=== PATIENT | male | born 1965 | race African-American/Black ===

== ENCOUNTER 2018-12-23 00:23 | Inpatient (IN) ==
[2018-12-23 01:01] LABS: Basophils # (auto) 0.03 K/uL (0-0.2); Basophils % (auto) 0.4 %; Eosinophils # (auto) 0.16 K/uL (0-0.5); Eosinophils % (auto) 2.2 %; Hematocrit (blood only) 36.2 % (42-52); Hemoglobin 12.9 g/dL (14.0-18.0); Immature Granulocytes # (auto) 0.01 K/uL (0.00-0.02); Immature Granulocytes % (auto) 0.1 %; Lymphocytes # (auto) 1.58 K/uL (1.2-3.4); Lymphocytes % (auto) 22.1 %; Mean Corpuscular Hgb Conc 35.6 g/dL (32-36); Mean Corpuscular Volume 87.4 fL (80-100); Mean Platelet Volume 8.5 fL (7.4-10.4); Monocytes # (auto) 0.75 K/uL (0.11-0.59); Monocytes % (auto) 10.5 %; Neutrophils # (auto) 4.62 K/uL (1.4-6.5); Neutrophils % (auto) 64.7 %; Platelet Count 291 K/uL (130-400); RDW Coefficient of Variation 12.7 % (11.5-14.5); RDW Standard Deviation 41.2 fL (36.4-46.3); Red Blood Count 4.14 M/uL (4.7-6.1); White Blood Count 7.15 K/uL (4.8-10.8)
[2018-12-23 01:09] LABS: Alanine Aminotransferase 35 U/L (12-78); Albumin Level 3.6 gm/dl (3.4-5.0); Aspartate Aminotransferase 32 U/L (15-37); Blood Urea Nitrogen 9 mg/dl (7-18); Calcium 8.4 mg/dl (8.5-10.1); Carbon Dioxide 23 mmol/L (21-32); Chloride 96 mmol/L (98-107); Est GFR (African American) 111.9; Est GFR (Non-African American) 96.6; Glucose 118 mg/dl (70-99); Magnesium 1.6 mg/dl (1.8-2.4); Potassium 3.3 mmol/L (3.5-5.1); Sodium 128 mmol/L (136-145)
[2018-12-23 01:20] LABS: Albumin Globulin Ratio 0.9 (0.9-2); Alkaline Phosphatase 64 U/L (45-117); Bilirubin,Total 0.3 mg/dl (0.2-1); Globulin 3.9 gm/dl (2.5-4.0); Total Protein 7.5 gm/dl (6.4-8.2); Troponin I < 0.015 ng/ml (0-0.045)
[2018-12-23] MEDS ORDERED: SODIUM CHLORIDE 0.9% 1000ML 1,000 ML IV ONE (01:57)
[2018-12-23] MEDS ORDERED: POTASSIUM CHLORIDE 20 MEQ TABCR PO STA ×2 (02:22→10:36)
[2018-12-23 02:29] LABS: Appearance Urine Clear (Clear); Bilirubin Urine Negative (Negative); Blood Urine Negative (Negative); Color Urine Yellow; Glucose Urine UA Negative (Negative); Ketones Urine Negative (Negative); Leukocyte Esterase Urine Negative (Negative); Nitrite Urine Negative (Negative); Protein Urine Negative (Negative); Urobilinogen Urine Negative (Negative)
[2018-12-23] MEDS: MAGNESIUM SULFATE / D5W 1 GM/100 ML BAG IV SCH ×2 (02:52→04:49)
--- NOTE | 2018-12-23 02:59 | History & Physical Report ---
Date of Service December 23, 2018 Assessment & Plan (1) Nonsustained ventricular tachycardia: Patient had several 4 beat runs of nonsustained V. tach while in the emergency department. We will give magnesium sulfate 2 g IV, and Klor-Con 40 mEq p.o. Present on Admission?: Yes (2) Hypokalemia: Potassium 3.3 upon admission. We will give Klor-Con 40 mEq p.o. Recheck laboratories at 10:00 this a.m. Present on Admission?: Yes (3) Hypomagnesemia: Magnesium 1.6 upon admission. Give magnesium sulfate 2 g IV. Repeat laboratories at 10:00 AM Present on Admission?: Yes (4) Hematuria: Hematuria/increased urinary frequency- Patient reports he has had blood in his urine, has not seen his doctor in follow-up yet. Order urinalysis, urine culture and sensitivity and PSA. Present on Admission?: Yes (5) Increased urinary frequency: As above. Present on Admission?: Yes (6) Chest discomfort: Chest discomfort left lateral quadrant of chest- The patient will be admitted to telemetry for serial cardiac enzymes, serial EKG's, cardiac rhythm monitoring and a 2-D echocardiogram with Dopplers. Add a d-dimer. Present on Admission?: Yes (7) Hyponatremia: Hyponatremia/polydipsia- Admission laboratories: Sodium 128, magnesium 1.6, potassium 3.3, serum osmolality 274, urine osmolality 85. Laboratories are consistent with polydipsia. Patient reports he has been urinating up to every 15 minutes. Unclear cause of polydipsia at this time. Fluid restriction 1500 mils. Add a urine drug screen. As noted above will be repeating laboratories later in the day Present on Admission?: Yes (8) Polydipsia: As above. Present on Admission?: Yes History of Present Illness Chief Complaint: The patient presents to the emergency department with complaint of intermittent chest discomfort, bilateral tingling in upper extremities. He is also had muscle cramps in both lower extremities over the past month. Primary Care Provider: NO PCP The patient is a 53-year-old male with no significant past medical history, who is traveling from [facility] to [facility], and stopped [facility] due to concerns regarding symptoms of chest discomfort, bilateral upper extremity paresthesias and dysesthesias, and lower extremity cramping. He also reports he has had hematuria for which she has yet to follow-up with his physician. He reports urinating up to every 15 minutes for weeks to months, but denies dysuria or grossly visible blood. Allergies Allergy/AdvReac Type Severity Reaction Status Date / Time No Known Allergies Allergy Unverified 12/23/18 02:06 Home Medications Home Medications Medication Instructions Recorded Confirmed Type No Known Home Medications 12/23/18 12/23/18 History Past Med/Surg History Medical History No significant past medical history Family History Other Diabetes Hypertension Social History Preferred Language: South African Communication Ability: Effective Spiritual Advisor Required: No Beliefs That Will Affect Care: None Current Living Situation: Parent Other Information That Helps Us Care for You: No Feels Safe at Home: Yes Safety Concerns: Feels Safe At This Time Smoking Status: Current every day smoker Tobacco Type: cigarettes Second Hand Exposure: No Tobacco Cessation Education Requested by Patient: No Hx Alcohol Use: Yes Alcohol type: beer Hx Substance Use: No Review of Systems Review of Systems: The patient denies palpitations, shortness of breath, dyspnea on exertion, cough, lower extremity swelling, sore throat, fevers, chills, sweats, weight change, fatigue, nausea, vomiting, diarrhea , constipation, abdominal pain, pelvic pain, blood in stool, dysuria, urinary frequency or urgency, lightheadedness, dizziness, headache, memory loss, loss of consciousness, rash, abnormal bruising or bleeding, imbalance, back or neck pain, or night sweats. The review of systems is otherwise negative other than for that already noted above, and at least 10 systems have been reviewed. Physical Exam Physical Exam: The patient is awake, alert and oriented 3, well developed and well nourished, normocephalic and atraumatic, lying in bed and in no acute distress. HEENT--PERRL, EOMI, mucous membranes and oropharynx normal. Neck--supple. No JVD. No bruits. Thyroid normal, trachea midline, no adenopathy. Heart--normal S1 and S2. No murmurs, rubs or gallops. Lungs--clear bilaterally, no respiratory distress, no accessory muscle use. Abdomen--normal bowel sounds and soft. Nontender. Nondistended, no hernias or masses, no organomegaly. Extremities--no cyanosis or clubbing. No edema. There are good distal pulses b/l. Dermatologic--normal skin turgor, normal color, no abnormal lymph nodes, no rash. Neurologic--cranial nerves II through XII grossly intact. Rheumatologic--normal range of motion. Psychiatric--normal affect. Results & Data Vital Signs (Past 12 Hours) Vital Signs Temp Pulse Pulse Resp BP BP Pulse Ox 12/23/18 02:06 58 L 17 137/64 98 12/23/18 00:27 98.1 F 68 18 152/72 H 99 Laboratory Results Laboratory Results WBC 7.15 K/uL (4.8-10.8) 12/23/18 00:42 RBC 4.14 M/uL (4.7-6.1) L 12/23/18 00:42 Hgb 12.9 g/dL (14.0-18.0) L 12/23/18 00:42 Hct 36.2 % (42-52) L 12/23/18 00:42 MCV 87.4 fL (80-100) 12/23/18 00:42 MCH 31.2 pg (25-34) 12/23/18 00:42 MCHC 35.6 g/dL (32-36) 12/23/18 00:42 RDW Std Deviation 41.2 fL (36.4-46.3) 12/23/18 00:42 RDW Coeff of Raul 12.7 % (11.5-14.5) 12/23/18 00:42 Plt Count 291 K/uL (130-400) 12/23/18 00:42 MPV 8.5 fL (7.4-10.4) 12/23/18 00:42 Immature Gran % (Auto) 0.1 % 12/23/18 00:42 Neut % (Auto) 64.7 % 12/23/18 00:42 Lymph % (Auto) 22.1 % 12/23/18 00:42 [place] % (Auto) 10.5 % 12/23/18 00:42 Eos % (Auto) 2.2 % 12/23/18 00:42 Baso % (Auto) 0.4 % 12/23/18 00:42 Immature Gran # (Auto) 0.01 K/uL (0.00-0.02) 12/23/18 00:42 Neut # (Auto) 4.62 K/uL (1.4-6.5) 12/23/18 00:42 Lymph # (Auto) 1.58 K/uL (1.2-3.4) 12/23/18 00:42 [place] # (Auto) 0.75 K/uL (0.11-0.59) H 12/23/18 00:42 Eos # (Auto) 0.16 K/uL (0-0.5) 12/23/18 00:42 Baso # (Auto) 0.03 K/uL (0-0.2) 12/23/18 00:42 Sodium 128 mmol/L (136-145) L 12/23/18 00:42 Potassium 3.3 mmol/L (3.5-5.1) L 12/23/18 00:42 Chloride 96 mmol/L (98-107) L 12/23/18 00:42 Carbon Dioxide 23 mmol/L (21-32) 12/23/18 00:42 Anion Gap 9.0 (3-11) 12/23/18 00:42 BUN 9 mg/dl (7-18) 12/23/18 00:42 Creatinine 0.91 mg/dl (0.6-1.4) 12/23/18 00:42 Est Cr Clr Drug Dosing 95.0 ml/min 12/23/18 00:42 Est GFR ( Amer) 111.9 12/23/18 00:42 Est GFR (Non-Af Amer) 96.6 12/23/18 00:42 BUN/Creatinine Ratio 10.0 (10-20) 12/23/18 00:42 Glucose 118 mg/dl (70-99) H 12/23/18 00:42 Osmolality 274 mOsm/kg (280-300) L 12/23/18 00:42 Calcium 8.4 mg/dl (8.5-10.1) L 12/23/18 00:42 Magnesium 1.6 mg/dl (1.8-2.4) L 12/23/18 00:42 Total Bilirubin 0.3 mg/dl (0.2-1) 12/23/18 00:42 AST 32 U/L (15-37) 12/23/18 00:42 ALT 35 U/L (12-78) 12/23/18 00:42 Alkaline Phosphatase 64 U/L (45-117) 12/23/18 00:42 Troponin I < 0.015 ng/ml (0-0.045) 12/23/18 00:42 Total Protein 7.5 gm/dl (6.4-8.2) 12/23/18 00:42 Albumin 3.6 gm/dl (3.4-5.0) 12/23/18 00:42 Globulin 3.9 gm/dl (2.5-4.0) 12/23/18 00:42 Albumin/Globulin Ratio 0.9 (0.9-2) 12/23/18 00:42 Prostate Specific Ag 1.380 ng/ml (0-4) 12/23/18 00:42 TSH 0.588 uIu/ml (0.300-4.500) 12/23/18 00:42 Urine Color Yellow 12/23/18 01:28 Urine Appearance Clear (Clear) 12/23/18 01:28 Urine pH 6.0 (4.5-7.5) 12/23/18 01:28 Ur Specific [place] 1.010 (1.000-1.030) 12/23/18 01:28 Urine Protein Negative (Negative) 12/23/18 01:28 Urine Glucose (UA) Negative (Negative) 12/23/18 01:28 Urine Ketones Negative (Negative) 12/23/18 01:28 Urine Blood Negative (Negative) 12/23/18 01:28 Urine Nitrite Negative (Negative) 12/23/18 01:28 Urine Bilirubin Negative (Negative) 12/23/18 01:28 Urine Urobilinogen Negative (Negative) 12/23/18 01:28 Ur Leukocyte Esterase Negative (Negative) 12/23/18 01:28 Urine Osmolality 85 mOsm/kg (500-800) L 12/23/18 01:28 Ethyl Alcohol mg/dL 17.0 mg/dl (0-3) H 12/23/18 00:55 Code Status & VTE Plan Code Status Full code VTE Prophylaxis Plan VTE Prophylaxis will be ordered: Yes PG Care Time/CCT Total # of Minutes Spent Total Time Spent with Patient: Total time spent is greater than 50% in coordination of care (as documented) at patient's floor/unit and/or counseling patient:
[2018-12-23] MEDS ORDERED: ALUMINUM/MAGNESIUM SUSP 30 ML UDC PO PRN (03:39)
[2018-12-23] MEDS ORDERED: MAGNESIUM HYDROXIDE SUSP 30 ML UDC PO PRN (03:39)
[2018-12-23] MEDS ORDERED: ACETAMINOPHEN 325 MG TAB PO PRN (03:39)
--- NOTE | 2018-12-23 04:25 | Emergency Department Note ---
Entered by Zulay Richards acting as a scribe for History of Present Illness General Chief complaint: Cardiac Assessment Stated complaint: ARM PAIN,CHEST DIFFCOMFORT Time Seen by Provider: 12/23/18 00:31 Source: patient History of Present Illness Onset (ago): hour(s) (just prior to arrival) Location: left and right Pain Consistency: + other (episode ) Quality: + other (feeling "iffy") Associated symptoms: + other (positive tingling in hands and fingers; positive feels like going to "cramp up") Treatments prior to arrival: none The patient is a 53 year old male who presents to the Emergency Room with complaints of an episode of feeling "iffy" that began just prior to arrival. The patient states that he had tingling in his hands and fingers at this time. He states that he feels like he is "going to cramp up". The patient states that he is currently driving from [place] to [facility]. The patient states that he has a tooth infection, but states that he has been taking his prescribed Amoxicillin for this. The patient states that he drank beer today. He states that he has a family history of Diabetes and Hypertension. Home Medications Home Medications Medication Instructions Recorded Confirmed Type No Known Home Medications 12/23/18 12/23/18 History Allergies Allergy/AdvReac Type Severity Reaction Status Date / Time No Known Allergies Allergy Unverified 12/23/18 02:06 Past Med/Surg History Medical History No significant past medical history Family History Other Diabetes Hypertension Social History Preferred Language: Serbian Communication Ability: Effective Sort Line Worker Required: No Beliefs That Will Affect Care: None Current Living Situation: Parent Other Information That Helps Us Care for You: No Feels Safe at Home: Yes Safety Concerns: Feels Safe At This Time Smoking Status: Current every day smoker Tobacco Type: cigarettes Second Hand Exposure: No Tobacco Cessation Education Requested by Patient: No Hx Alcohol Use: Yes Alcohol type: beer Hx Substance Use: No Review of Systems See HPI for pertinent positives & negatives. and A total of 10 systems reviewed and were otherwise negative Physical Exam Vital Signs Vital Signs - 24 hr 12/23/18 00:27 12/23/18 00:50 12/23/18 02:06 Temperature 36.7 C Temperature Source Oral Sepsis Recent Fever Within 48 Hours No Sepsis New/Unexplained Change in Mental Status No Sepsis Action Taken by Nursing No Action Required Pulse Rate 68 Pulse Rate [Right Finger] 58 L Respiratory Rate 18 17 Blood Pressure 152/72 H Blood Pressure [Right Arm] 137/64 Blood Pressure Mean 98 Blood Pressure Mean [Right Arm] 88 Pulse Oximetry 99 98 Oxygen Delivery Method Room Air Room Air Room Air HEENT: Head - normocephalic and atraumatic Pupils are equal, round, and reactive to light. Extraocular eye muscles are intact, and sclera are anicteric. Nose - moist nasal mucosa without discharge. Mouth - moist buccal mucosa. Oropharynx is nonerythematous and there is no tonsillar exudate or edema noted. Neck: Supple; no JVD, nuchal rigidity, cervical lymphadenopathy. Heart: Regular rate and rhythm. There is a normal S1 and S2 with no murmurs, clicks, or gallops appreciated. Lungs: Clear to auscultation bilaterally with no wheezes, rales, or rhonchi. Abdomen: Soft, completely nontender, nondistended, with good bowel sounds. There are no palpable pulsatile masses or hepatosplenomegaly. There is no guarding, rigidity, or rebound noted. Extremities: No evidence of cyanosis, clubbing, or edema. There are easily palpable peripheral pulses. Skin: warm and dry with good turgor and no rashes. Course 0039: Past medical records reviewed. The patient was evaluated in room A3. A complete history and physical exam was performed. While in the room the patient had a run of wide complex rhythm and was asymptomatic with this. A twelve-lead EKG was performed. An IV lock was initiated and labs were drawn as above. 0154: Upon reevaluation, the patient states that he was drinking Red Bull and taking caffeine and ginseng tablets today. The patient's episodes of a wide complex rhythm have slowed down. I discussed the [facility] who [facility] the patient for further evaluation. The patient was started on a normal saline drip. Consultations Consultation #1: I discussed the case [facility] who accepts the patient for further evaluation. Time: 01:54 Administered Medications Magnesium Sulfate/Dextrose (Magnesium Sulfate / D5w) 1 gm in 100 mls @ 100 mls/hr IV Q1H JOSE MARTIN Stop: 12/23/18 04:29 Last Admin: 12/23/18 02:52 Dose: 100 mls/hr Documented by: [id number] Discontinued Medications Sodium Chloride (Nss 1000ml) 1,000 mls @ 999 mls/hr IV .Q1H1M ONE Stop: 12/23/18 02:57 Last Infusion: 12/23/18 03:00 Dose: 0 mls/hr Documented by: [id number] Admin: 12/23/18 02:02 Dose: 999 mls/hr Documented by: [id number] Potassium Chloride (Klor-Con M20) 40 meq PO NOW STA Stop: 12/23/18 02:23 Last Admin: 12/23/18 02:52 Dose: 40 meq Documented by: [id number] Medical Decision Making Differential Diagnosis Differential diagnoses include alcohol intoxication, caffeine overdose, drug abuse, cardiac disease, anxiety, and others were considered. Medical Records Attestation: I reviewed the patient's medical records. Home Medications Current Medication List: was personally reviewed by me Laboratory Data Attestation: I reviewed the patient's lab results. Result diagrams: 12/23/18 00:42 12/23/18 00:42 Lab Results 12/23/18 12/23/18 12/23/18 Range/Units 00:42 00:42 00:42 WBC 7.15 (4.8-10.8) K/uL RBC 4.14 L (4.7-6.1) M/uL Hgb 12.9 L (14.0-18.0) g/dL Hct 36.2 L (42-52) % MCV 87.4 (80-100) fL MCH 31.2 (25-34) pg MCHC 35.6 (32-36) g/dL RDW Std Deviation 41.2 (36.4-46.3) fL RDW Coeff of Raul 12.7 (11.5-14.5) % Plt Count 291 (130-400) K/uL MPV 8.5 (7.4-10.4) fL Immature Gran % (Auto) 0.1 % Neut % (Auto) 64.7 % Lymph % (Auto) 22.1 % [place] % (Auto) 10.5 % Eos % (Auto) 2.2 % Baso % (Auto) 0.4 % Immature Gran # (Auto) 0.01 (0.00-0.02) K/uL Neut # (Auto) 4.62 (1.4-6.5) K/uL Lymph # (Auto) 1.58 (1.2-3.4) K/uL [place] # (Auto) 0.75 H (0.11-0.59) K/uL Eos # (Auto) 0.16 (0-0.5) K/uL Baso # (Auto) 0.03 (0-0.2) K/uL Sodium 128 L (136-145) mmol/L Potassium 3.3 L (3.5-5.1) mmol/L Chloride 96 L (98-107) mmol/L Carbon Dioxide 23 (21-32) mmol/L Anion Gap 9.0 (3-11) BUN 9 (7-18) mg/dl Creatinine 0.91 (0.6-1.4) mg/dl Est Cr Clr Drug Dosing 95.0 ml/min Est GFR ( Amer) 111.9 Est GFR (Non-Af Amer) 96.6 BUN/Creatinine Ratio 10.0 (10-20) Glucose 118 H (70-99) mg/dl Osmolality 274 L (280-300) mOsm/kg Calcium 8.4 L (8.5-10.1) mg/dl Magnesium 1.6 L (1.8-2.4) mg/dl Total Bilirubin 0.3 (0.2-1) mg/dl AST 32 (15-37) U/L ALT 35 (12-78) U/L Alkaline Phosphatase 64 (45-117) U/L Troponin I < 0.015 (0-0.045) ng/ml Total Protein 7.5 (6.4-8.2) gm/dl Albumin 3.6 (3.4-5.0) gm/dl Globulin 3.9 (2.5-4.0) gm/dl Albumin/Globulin Ratio 0.9 (0.9-2) Prostate Specific Ag 1.380 (0-4) ng/ml TSH 0.588 (0.300-4.500) uIu/ml Urine Color Urine Appearance (Clear) Urine pH (4.5-7.5) Ur Specific [place] (1.000-1.030) Urine Protein (Negative) Urine Glucose (UA) (Negative) Urine Ketones (Negative) Urine Blood (Negative) Urine Nitrite (Negative) Urine Bilirubin (Negative) Urine Urobilinogen (Negative) Ur Leukocyte Esterase (Negative) Urine Osmolality (500-800) mOsm/kg Ethyl Alcohol mg/dL (0-3) mg/dl 12/23/18 12/23/18 12/23/18 Range/Units 00:55 01:28 01:28 WBC (4.8-10.8) K/uL RBC (4.7-6.1) M/uL Hgb (14.0-18.0) g/dL Hct (42-52) % MCV (80-100) fL MCH (25-34) pg MCHC (32-36) g/dL RDW Std Deviation (36.4-46.3) fL RDW Coeff of Raul (11.5-14.5) % Plt Count (130-400) K/uL MPV (7.4-10.4) fL Immature Gran % (Auto) % Neut % (Auto) % Lymph % (Auto) % [place] % (Auto) % Eos % (Auto) % Baso % (Auto) % Immature Gran # (Auto) (0.00-0.02) K/uL Neut # (Auto) (1.4-6.5) K/uL Lymph # (Auto) (1.2-3.4) K/uL [place] # (Auto) (0.11-0.59) K/uL Eos # (Auto) (0-0.5) K/uL Baso # (Auto) (0-0.2) K/uL Sodium (136-145) mmol/L Potassium (3.5-5.1) mmol/L Chloride (98-107) mmol/L Carbon Dioxide (21-32) mmol/L Anion Gap (3-11) BUN (7-18) mg/dl Creatinine (0.6-1.4) mg/dl Est Cr Clr Drug Dosing ml/min Est GFR ( Amer) Est GFR (Non-Af Amer) BUN/Creatinine Ratio (10-20) Glucose (70-99) mg/dl Osmolality (280-300) mOsm/kg Calcium (8.5-10.1) mg/dl Magnesium (1.8-2.4) mg/dl Total Bilirubin (0.2-1) mg/dl AST (15-37) U/L ALT (12-78) U/L Alkaline Phosphatase (45-117) U/L Troponin I (0-0.045) ng/ml Total Protein (6.4-8.2) gm/dl Albumin (3.4-5.0) gm/dl Globulin (2.5-4.0) gm/dl Albumin/Globulin Ratio (0.9-2) Prostate Specific Ag (0-4) ng/ml TSH (0.300-4.500) uIu/ml Urine Color Yellow Urine Appearance Clear (Clear) Urine pH 6.0 (4.5-7.5) Ur Specific [place] 1.010 (1.000-1.030) Urine Protein Negative (Negative) Urine Glucose (UA) Negative (Negative) Urine Ketones Negative (Negative) Urine Blood Negative (Negative) Urine Nitrite Negative (Negative) Urine Bilirubin Negative (Negative) Urine Urobilinogen Negative (Negative) Ur Leukocyte Esterase Negative (Negative) Urine Osmolality 85 L (500-800) mOsm/kg Ethyl Alcohol mg/dL 17.0 H (0-3) mg/dl ECG Data Attestation: I personally reviewed and interpreted this ECG as follows: Indication: weakness Rate (beats per minute): 56 Rhythm: sinus bradycardia Findings: + other (no ischemia ); no ectopy Blood Pressure Blood Pressure Findings: Elevated blood pressure Blood Pressure Disposition: further management by hospitalist [facility] Ruby The patient is a 53 year old male who presents to the Emergency Room with complaints of an episode of feeling "iffy" that began just prior to arrival. The patient describes just not feeling like himself. While he was driving he describes feeling unsure of himself. Upon presentation to the emergency department, the patient had a normal sinus rhythm and sinus bradycardia with episodes of wide-complex rhythm. There were occasional PVCs that seem to be followed by 3-4 beats of this wide-complex rhythm. The patient describes being athletic but does smoke. He denies any previous cardiac dysrhythmia. However, he had been drinking caffeinated beverages and taking caffeine tablets along with ginseng to keep himself awake for the drive. The patient does admit that he was drinking quite a bit of fluid as a result of trying to keep himself awake. He is now hyponatremic. This could be secondary to polydipsia. The patient will be evaluated by the [facility] for admission. Impression & Plan Hyponatremia, Dysrhythmia Discharge Plan Visit Data *Final* Discharge Date/Time: 12/23/18 03:17 Chief Complaint: Cardiac Assessment Stated Complaint: ARM PAIN,CHEST DIFFCOMFORT ED Provider: Rufina Scott Discharge Problem: Hyponatremia, Dysrhythmia Patient Disposition: Admitted As Inpatient Discharge Instructions Interventions: ED Discharge Assessment Last Done: 12/23/18 03:17 Discharge Problem: Dysrhythmia Qualifiers: Arrhythmia type: unspecified cardiac arrhythmia Qualified Code(s): I49.9 - Cardiac arrhythmia, unspecified The scribe's documentation has been prepared under my direction and personally reviewed by me in its entirety. I confirm that the note above accurately reflects all work, treatment, procedures, and medical decision making performed by me.
--- NOTE | 2018-12-23 06:40 | XRay Report ---
XR chest 1V portable CLINICAL HISTORY: Atypical chest pain COMPARISON STUDY: No previous studies for comparison. FINDINGS: The cardiac and mediastinal contours are normal. There is no evidence of focal pulmonary co nsolidation. There is no evidence of failure. No pleural effusions are visualized.[ IMPRESSION: No active disease in the chest. Electronically signed by: Haja Martines M.D. 12/23/2018 6:39 AM
[2018-12-23] MEDS ORDERED: SODIUM CHLORIDE 0.9% 500 ML IV SCH (10:45)
[2018-12-23 12:57] LABS: BUN Creatinine Ratio 8.2 (10-20); Creatinine Clr Calc Pharmacy 74.5 ml/min; Est GFR (African American) 83.5; Magnesium 2.2 mg/dl (1.8-2.4); Potassium 4.3 mmol/L (3.5-5.1)
--- NOTE | 2018-12-23 14:06 | Discharge Summary ---
Date of Service December 23, 2018 Admission HPI Per Admitting Provider The patient is a 53-year-old male with no significant past medical history, who is traveling from [facility] to [facility], and stopped [facility] due to concerns regarding symptoms of chest discomfort, bilateral upper extremity paresthesias and dysesthesias, and lower extremity cramping. He also reports he has had hematuria for which she has yet to follow-up with his physician. He reports urinating up to every 15 minutes for weeks to months, but denies dysuria or grossly visible blood. Principal Diagnosis hyponatremia hypokalemia' hypomagnesemia Discharge Exam Constitutional well developed and average body habitus Eyes no conjunctival abnormality and no scleral abnormality Neck normal visual inspection and trachea midline Respiratory normal respiratory effort; no respiratory distress Auscultation: lungs clear to auscultation bilaterally Cardiovascular RRR, no murmur, no edema Gastrointestinal (Abdomen) normal bowel sounds, soft, nontender, no hepatosplenomegaly Musculoskeletal no cyanosis or clubbing, extremities motor strength 5/5 Discharge Data Allergies Allergy/AdvReac Type Severity Reaction Status Date / Time No Known Allergies Allergy Unverified 12/23/18 02:06 Consultations 12/23/18 01:57 ED Decision to Admit Stat 12/23/18 03:39 Consult Case Management - Discharge Planning Routine Hospital Course (1) Nonsustained ventricular tachycardia: Patient had several 4 beat runs of nonsustained V. tach while in the emergency department. he has not had further ectopy (2) Hypokalemia: replete (3) Hypomagnesemia: replete (4) Hematuria: Hematuria/increased urinary frequency- Patient reports he has had blood in his urine, has not seen his doctor in follow-up yet. Order urinalysis, urine culture and sensitivity and PSA. (5) Increased urinary frequency: As above. (6) Chest discomfort: Chest discomfort left lateral quadrant of chest- resolved (7) Hyponatremia: Hyponatremia/polydipsia-near normal 135 (8) Polydipsia: recommend electrolyte containing drinks Total Time Total Time Spent Total Time Spent (In Minutes): greater than 30 minutes were required to prepare discharge Discharge Plan Discharge Items Patient Disposition: Home - Self-Care Reason For Visit: CHEST PAIN, HYPONATREMIA, HYPOKALEMIA, HYPOMAGNESE Discharge Diagnosis: low sodium, potassium and magnesium Discharge Goals: Decrease discomfort Activity: Resume your previous activity Non-emergency contact: Primary Care Provider Call non-emergency contact if: you have any medication questions Follow-up/Referrals: PCP,NO [Primary Care Provider] - Diet: Regular Addtl Provider Instructions: please hydrate yourself with drinks containing electrolytes when you are out in the heat and sun consider follow up with your primary care once you return to [place] Prescriptions: No Action No Known Home Medications RF: 0 Stand-Alone Forms: [facility] Discharge Orders: Discharge Order (Routine); Ordered 12/23/18 Ordered By: Jaydon Marin Admission Data Admit Date/Time: 12/23/18 02:56 Attending Provider: Jaydon Marin Admit Provider: Shantanu Hudson Primary Care Provider: PCP,ROXANE Other Providers: Shantanu Hudson Service: Telemetry Other Interventions: Discharge Summary Assessment (RN) Last Done: 12/23/18 13:45 DC Date/Time DO NOT enter until pt leaves facility: 12/23/18 13:59
== END 2018-12-23 13:59 | disposition home or self-care (01) | DRG 309 ==
LOC: ED 00:23 → SUATTDRO 02:56 → 2S 02:56